=== PATIENT | female | born 1990 | race African-American/Black ===

== ENCOUNTER 2016-11-26 23:37 | Emergency (ER) | payer OTHER ==
[~2016-11-26 23:37] MED LIST: Sodium Chloride 0.9% 1,000 ML BAG ONE
[2016-11-27] MEDS ORDERED: Ondansetron HCl/PF 4 MG/2 ML Vial ONE (00:23)
[2016-11-27] MEDS ORDERED: Ibuprofen 800 MG TAB ONE (00:23)
[2016-11-27 01:03] LABS: ALT (SGPT) 54 U/L (0-55); AST (SGOT) 41 U/L (5-34); Albumin 3.9 g/dL (3.5-5.0); Alkaline Phosphatase 74 U/L (40-150); Anion Gap 18 mmol/L (10-20); BUN (Urea Nitrogen) 4 mg/dL (7.0-18.7); Bilirubin, Total 0.7 mg/dL (0.2-1.2); Calc. Creatinine Clearance 0 mL/min (70-130); Calcium 9.1 mg/dL (7.8-10.44); Carbon Dioxide 22 mmol/L (22-29); Chloride 103 mmol/L (98-107); Estimated GFR-MDRD Greater than 90; Globulin 3.5 g/dL (2.4-3.5); Glucose 117 mg/dL (70-105); Potassium 3.1 mmol/L (3.5-5.1); Protein, Total 7.4 g/dL (6.0-8.3); Sodium 140 mmol/L (136-145)
[2016-11-27 01:16] LABS: Blood, Urine Large (Negative); Clarity Slightly Cloudy (Clear); Glucose, Urine (Dipstick) Negative (Negative); Leukocyte Trace (Negative); Nitrite Negative (Negative); Protein, Urine (Dipstick) 100 mg/dL (Neg-Trace); Specific Gravity, Urine 1.025 (1.005-1.030); pH, Urine 6.5 (5.0-9.0)
[2016-11-27 01:21] LABS: #Basophils 0.1 thou/uL (0.0-0.2); #Lymphocytes 1.7 thou/uL (1.20-3.40); #Neutrophils 6.7 thou/uL (1.40-6.50); %Basophils 1.1 % (0.0-1.0); %Eosinophils 0.3 % (0.0-10.0); %Lymphocytes 18.1 % (21.0-51.0); %Monocytes 10.1 % (0.0-10.0); %Neutrophils 70.5 % (42.0-75.0); Hemoglobin 12.1 g/dL (12.0-16.0); Mean Corpuscular Hemoglobin 29.8 pg (27.0-31.0); Mean Corpuscular Volume 87.7 fl (81.0-99.0); Platelet Count 318 thou/uL (130-400); Red Blood Cell (RBC) Count 4.06 mill/uL (4.20-5.40); White Blood Cell (WBC) Count 9.5 thou/uL (4.8-10.8)
[2016-11-27 01:22] LABS: Bacteria/HPF 4+ HPF (None Seen); Bilirubin Small (Negative); Icto Negative (Negative); RBC/HPF GREATER THAN 50-TNTC HPF (0-3); Renal Epithelial 0-3 HPF (0-3); Transitional Epithelial 0-3 HPF (0-3); WBC/HPF 21-50 HPF (0-3); Yeast-All Forms 2+ HPF (None Seen)
[2016-11-27] MEDS ORDERED: cefTRIAXone\\ROCEPHIN 1 GM VIAL ONE (01:30)
[2016-11-27] MEDS ORDERED: Erythromycin Base 0.5% Ophth Oint 3.5 gm Tube ONE (01:30)
[2016-11-27] MEDS ORDERED: Potassium Chloride 20 MEQ TAB ONE (01:30)
--- NOTE | 2016-11-27 01:55 | ERRECORD ---
[facility] EMERGENCY RECORD HPI FEVER (SunNov 27, 2016 00:10 LHOD) CHIEF COMPLAINT: Patient presents for evaluation of fever, Measured maximum temperature 101 to 101.9 degrees. HISTORIAN: History provided by patient. TIME COURSE: SUNDAY PT REPORTS SHE WASN'T FEELING WELL WITH SORE THROAT, EYE IRRITATION AND DECREASED APPETITIE. DENIES ANYONE ELSE AT HOME ILL. DENIES RECENT TRAVEL. SEEN HERE SUNDAY AND PRESCRIBED AMOXIL FOR SORE THROAT AND TOBRAMYCIN EYE DROPS FOR RIGHT EYE CONJUNCTIVITIS. ROS (SunNov 27, 2016 00:14 LHOD) CONSTITUTIONAL: Historian reports fever. EYES: Historian reports eye redness. ENT: Historian reports sore throat. CARDIOVASCULAR: Historian denies chest pain. RESPIRATORY: Historian denies cough, denies shortness of breath. DENIES SIGNIFICANT COUGH. GI: Historian denies abdominal pain, reports diarrhea, reports nausea, denies vomiting. GENITOURINARY FEMALE: Historian denies dysuria. MUSCULOSKELETAL: Historian denies back pain, denies neck pain. SKIN: Historian denies rash. NEUROLOGIC: Historian denies headache. HEMO/LYMPHATIC: Historian denies easy bruising. NOTES: All systems reviewed, negative except as described above. PAST MEDICAL HISTORY MEDICAL HISTORY: No past medical history,. (SunNov 27, 2016 00:01 LPOL) FEMALE SURGICAL HISTORY: Surgical history of tubal ligation, , Surgical history of appendectomy, Surgical history of cholecystectomy. (SunNov 27, 2016 00:01 LPOL) PSYCHIATRIC HISTORY: Notes: VERIFIED 11-24-15, Psychiatric history includes, depression, no previous inpatient psychiatric admissions. (SunNov 27, 2016 00:01 LPOL) SOCIAL HISTORY: Social History includes , Patient denies alcohol use, Patient denies drug use, Patient has no smoking history. (SunNov 27, 2016 00:01 LPOL) NOTES: Nursing records reviewed. (SunNov 27, 2016 00:18 LHOD) KNOWN ALLERGIES No Known Drug Allergies CURRENT MEDICATIONS (SunNov 27, 2016 00:04 LPOL) tobramycin: DROPS : Strength - 0.3 % : OPHTHALMIC Patient Dose: 1-2 Drps OPHTHALMIC 3 times a day.Entered brand: tobramycin Eye Drops. Phenergan DM: SYRUP : ORAL &a-1R&a+25V*p+0X*[id number]*c202B*c15G*c2P*p-0X&a-25V&a+1R Name: Lashon Schultz : 1990 F26 MedRec: [id number] AcctNum: [id number] Prepared: SunNov 27, 2016 02:59 by Interface Page 1 of 3 pMD [facility] EMERGENCY RECORD Patient Dose: 1-2 teaspoon Oral every 4 hours prn. amoxicillin: CAPSULE : Strength - 500 mg : ORAL Patient Dose: Oral 3 times a day. VITAL SIGNS VITAL SIGNS: BP: 117/61, Pulse: 113, Resp: 20, Temp: 101.5 (Oral), O2 sat: 98 on Room Air, Time: 11/26/2016 23:58. (23:58 LPOL) BP: 116/54, Pulse: 89, Resp: 20, Temp: 99.4 (Oral), O2 sat: 99 on Room Air, Time: 11/27/2016 01:23. (SunNov 27, 2016 01:23 LPOL) PHYSICAL EXAM (SunNov 27, 2016 00:15 LHOD) CONSTITUTIONAL: Vital Signs Reviewed, Patient febrile, temperature of 101.5, Pulse, tachycardic, Blood pressure normal, Respiratory rate normal, Patient alert and oriented to person, place and time, VERY TIRED APPEARING WITH MARKED RIGHT EYE CONJUNCTIVAL ERYTHEMA AND SMALL AMOUNT YELLOW D/C. EYES: Pupils equally round and reactive to light, Extraocular muscles intact, Conjunctiva, injected bilaterally, edematous on the right, RIGHT EYE MARKED CONJUNCTIVAL ERYTHEMA WITH MILD EDEMA OF EYELIDS, Eye exam included findings of anterior chamber clear. ENT: Ear exam normal, Pharynx, injected bilaterally. NECK: Neck exam included findings of normal range of motion, Trachea midline. RESPIRATORY CHEST: Respiratory exam included findings of no respiratory distress, Breath sounds clear. CARDIOVASCULAR: Cardiovascular exam included findings of heart rate regular rate and rhythm, Heart sounds normal. ABDOMEN FEMALE: Abdominal exam included findings of abdomen nontender. BACK: Back exam normal. UPPER EXTREMITY: Joint exam normal. LOWER EXTREMITY: Joint exam normal. NEURO: Neuro exam findings include patient oriented to person, place and time, Speech normal. SKIN: no rash. MEDICATION ADMINISTRATION SUMMARY Drug Name: potassium chloride oral, Dose Ordered: 20 mEq, Route: Oral, Status: Given, Time: 01:36 11/27/2016, Drug Name: Rocephin intravenous, Dose Ordered: 1 g, Route: IV Push, Status: Given, Time: 01:35 11/27/2016, Drug Name: erythromycin ophthalmic, Dose Ordered: 1 units, Route: Eye Right, Status: Given, Time: 01:35 11/27/2016, Drug Name: *Normal Saline, Dose Ordered: 500 mL, Route: IV Fluid Infusion, Status: Given, Time: 01:34 11/27/2016, &a-1R&a+25V*p+0X*[id number]*c202B*c15G*c2P*p-0X&a-25V&a+1R Name: Lashon Schlutz : 1990 F26 MedRec: [id number] AcctNum: [id number] Prepared: SunNov 27, 2016 02:59 by Interface Page 2 of 3 pMD [facility] EMERGENCY RECORD Drug Name: Zofran intravenous, Dose Ordered: 8 mg, Route: IV Push, Status: Given, Time: 00:37 11/27/2016, Drug Name: Normal Saline, Dose Ordered: 500 mL/hr, Route: IV Fluid Infusion, Status: Given, Time: 00:37 11/27/2016, Drug Name: ibuprofen, Dose Ordered: 800 mg, Route: Oral, Status: Given, Time: 00:37 11/27/2016, *Additional information available in notes, Detailed record available in Medication Service section. DOCTOR NOTES (SunNov 27, 2016 01:11 LHOD) TEXT: 0111--AWAITING LAB. 0139--ADVISED HER ILLNESS IS PRIMARILY VIRAL. HER DIARRHEA MAY BE FROM THE VIRUS, BUT AMOXIL MAY HAVE WORSENED. SHE MAY NOT REQUIRE ANY ANTIBIOTIC, BUT I AM PLACING HER ON BACTRIM FOR POSSIBLE UTI. DISPENSED ERYTHROMYCIN OPHTHALMIC OINTMENT IF THE TOBRAMYCIN IS CAUSING ANY IRRITATION, ALTHOUGH PROBABLE CONTINUED VIRAL CONJUNTIVITIS SYMPTOMS. NO EVIDENCE OF SEPSIS, MENINGITIS OR PNEUMONIA. NO EVIDENCE OF CORNEAL ULCER OR ABRASION. PROBLEM LIST No recorded problems DIAGNOSIS (SunNov 27, 2016 01:32 LHOD) FINAL: PRIMARY: BILATERAL CONJUNCTIVITIS---VIRAL, ADDITIONAL: Hypokalemia, PHARYNGITIS--PROBABLE VIRAL, UTI. PRESCRIPTION (SunNov 27, 2016 01:34 LHOD) Bactrim DS: TABLET : 800 mg-160 mg : ORAL : Quantity: 1 Unit: tab(s) Route: ORAL Schedule: 2 times a day Dispense: 14 May substitute. Refills: No Refills . NOTES: No Refills. K-Dur: TABLET, EXT RELEASE, PARTICLES/CRYSTALS : 20 mEq : ORAL : Quantity: 1 Unit: tab(s) Route: ORAL Schedule: once a day (in the morning) Dispense: 4 May substitute. Refills: No Refills . NOTES: ^s=No Refills No Refills. Zofran ODT: TABLET, RAPID DISSOLVE : 8 mg : ORAL : Quantity: 1 Unit: tab(s) Route: ORAL Schedule: every 6 hours PRN Dispense: 3 May substitute. Refills: 1 . NOTES: ^s=^s=No Refills No Refills No Refills. DISPOSITION PATIENT: Disposition Type: Discharge, Disposition: *Discharge Home, Condition: Good. (SunNov 27, 2016 01:32 LHOD) Patient left the department. (SunNov 27, 2016 01:50 LPOL) [place]lor: LHOD=MD Augie, Janki LPOL=WESTLEY Allison, Ynes &a-1R&a+25V*p+0X*[id number]*c202B*c15G*c2P*p-0X&a-25V&a+1R Name: Lashon Schultz : 1990 F26 MedRec: [id number] AcctNum: [id number] Prepared: SunNov 27, 2016 02:59 by Interface Page 3 of 3 pMD MTDD
--- NOTE | 2016-11-27 02:02 | PICIS ---
[facility] EMERGENCY RECORD TRIAGE (23:59 LPOL) TRIAGE NOTES: right eye redness, decreased appetite/headache x 2 days. (23:59 LPOL) PATIENT: NAME: Lashon Schultz, AGE: 26, GENDER: female, : Sun1990, TIME OF GREET: Sun Nov 26, 2016 23:38, PREFERRED LANGUAGE: Belarusian, ETHNICITY: Not or , FALL RISK: NO, ECODE BILLING MAP: [facility], SSN: [id number], Zip Code: [address], KG WEIGHT: 40.73, PHONE: , , , PERSON ID: [id number], PCP: NO PCP. (23:59 LPOL) COMPLAINT: RIGHT EYE IRRITATION. (23:59 LPOL) ADMISSION: URGENCY: 3 Urgent, ADMISSION SOURCE: Home, TRANSPORT: Walk-in, BED: TRIAGE. (23:59 LPOL) SIRS SCORING: Heart Rate 110-139 (2), Temp range 101.2-102.0 (1), respiratory rate 12-24 (0), Mental Status altered: no (0), Total SIRS Score 3, Yes, Infection or Suspected Infection. (SunNov 27, 2016 00:01 LPOL) TRIAGE SCREENING: Patient denies suicidal ideation, Patient denies presence of domestic violence. (SunNov 27, 2016 00:01 LPOL) LMP: Last menstrual period: 11/24/2016. (SunNov 27, 2016 00:01 LPOL) TREATMENTS IN PROGRESS: Treatments given Prehospital: tobramycin,amoxicillin, phenergan dm. (SunNov 27, 2016 00:01 LPOL) PROVIDERS: TRIAGE NURSE: Ynes Allison RN. (23:59 LPOL) VITAL SIGNS: BP 117/61, Pulse 113, Resp 20, Temp 101.5, (Oral), O2 Sat 98, on Room Air, Time 11/26/2016 23:58. (23:58 LPOL) PREVIOUS VISIT ALLERGIES: No Known Drug Allergies. (23:59 LPOL) No Known Drug Allergies. (SunNov 27, 2016 00:01 LPOL) KNOWN ALLERGIES No Known Drug Allergies CURRENT MEDICATIONS (SunNov 27, 2016 00:04 LPOL) tobramycin: DROPS : Strength - 0.3 % : OPHTHALMIC Patient Dose: 1-2 Drps OPHTHALMIC 3 times a day.Entered brand: tobramycin Eye Drops. Phenergan DM: SYRUP : ORAL Patient Dose: 1-2 teaspoon Oral every 4 hours prn. amoxicillin: CAPSULE : Strength - 500 mg : ORAL Patient Dose: Oral 3 times a day. VITAL SIGNS VITAL SIGNS: BP: 117/61, Pulse: 113, Resp: 20, Temp: 101.5 (Oral), O2 sat: 98 on Room Air, Time: 11/26/2016 23:58. (23:58 LPOL) BP: 116/54, Pulse: 89, Resp: 20, Temp: 99.4 (Oral), O2 sat: 99 on Room Air, Time: 11/27/2016 01:23. (SunNov 27, 2016 01:23 LPOL) &a-1R&a+25V*p+0X*i9717N*c202B*c15G*c2P*p-0X&a-25V&a+1R Name: Lashon Schultz : 1990 F26 MedRec: [id number] AcctNum: [id number] Prepared: SunNov 27, 2016 03:04 by Interface Page 1 of 12 pMD [facility] EMERGENCY RECORD NURSING ASSESSMENT: HEAD-TO-TOE (SunNov 27, 2016 00:02 LPOL) CONSTITUTIONAL: Patient arrives ambulatory, Gait steady, History obtained from patient, Patient appears, uncomfortable, Patient cooperative, Patient alert, Oriented to person, place and time, Skin warm, Skin dry, Skin normal in color, Mucous membranes pink, Mucous membranes moist, Patient is well-groomed. PAIN: head. NEURO: GCS:, Eye opening: (4) - Spontaneous, Verbal: (5) - Oriented/conversive, Motor: (6) - Obeys commands/Spontaneous, GCS Total: 15. EYES: Sclera, redness. ENT: Associated with headache. ABDOMEN: Abdomen assessment findings include abdomen symmetrical, Abdomen soft, Associated with diarrhea, Associated with appetite change, decrease. SAFETY: Cart/Stretcher in lowest position, Family at bedside, Hospital ID band on. NURSING PROCEDURE: DISCHARGE NOTE (SunNov 27, 2016 01:48 LPOL) DISCHARGE: Patient discharged to home, ambulating without assistance, friend driving, accompanied by //partner, Summary of Care printed/ provided, Patient requested and was provided an electronic copy of Discharge Instructions, Transition record given to patient, Discharge instructions given to patient, Simple or moderate discharge teaching performed, by cari, Prescriptions given and instructions on side effects given, Medication reconciliation form given, Above person(s) verbalized understanding of discharge instructions and follow-up care, Patient treated and evaluated by physician. BELONGINGS: Belongings and valuables with patient upon arrival to the Emergency Department include:, Belongings remain with patient, Valuables remain with patient. NURSING PROCEDURE: IV IV SITE 1: IV established, to the right antecubital, using a 20 gauge catheter, in one attempt, Labs drawn at time of placement, labeled in the presence of the patient and sent to lab, Blood cultures drawn at time of placement, labeled in the presence of the patient and sent to lab. (SunNov 27, 2016 00:21 LPOL) FOLLOW-UP SITE 1: IV discontinued, due to patient being discharged, catheter intact. (SunNov 27, 2016 01:45 LPOL) ORDER DETAILS Order Name: CBC with Differential, Status: Active, Time: 00:08 11/27/2016, User: JOVANNA, - Ordered for: MD Ghosh Lefayne, - Entered by: MD Ghosh Lefayne - SunNov 27, 2016 00:08, - Quantity: 1, Order Name: Comprehensive Metabolic Panel, Status: Active, Time: &a-1R&a+25V*p+0X*w8964C*c202B*c15G*c2P*p-0X&a-25V&a+1R Name: Lashon Schultz : 1990 F26 MedRec: [id number] AcctNum: [id number] Prepared: SunNov 27, 2016 03:04 by Interface Page 2 of 12 D [facility] EMERGENCY RECORD 00:08 11/27/2016, User: JOVANNA, - Ordered for: MD Ghosh Lefayne, - Entered by: MD Ghosh Lefayne - SunNov 27, 2016 00:08, - Quantity: 1, Order Name: Culture, Blood, Status: Active, Time: 00:09 11/27/2016, User: JOVANNA, - Ordered for: MD Ghosh Lefayne, - Entered by: MD Ghosh Lefayne - Mon Nov 27, 2016 00:09, - Quantity: 1, Order Name: Culture, Urine, Status: Active, Time: 01:24 11/27/2016, User: JOVANNA, - Ordered for: MD Ghosh Lefayne, - Entered by: MD Ghosh Lefayne - Mon Nov 27, 2016 01:24, - Quantity: 1, Order Name: Influenza A&B Ag Screen, Status: Active, Time: 00:07 11/27/2016, User: JOVANNA, - Ordered for: MD Ghosh Lefayne, - Entered by: MD Ghosh Lefayne - Mon Nov 27, 2016 00:07, - Quantity: 1, Order Name: SALINE LOCK, Status: Done, Time: 00:22 11/27/2016, User: LPOL, - Ordered for: MD Ghosh Lefayne, - Entered by: MD Ghosh Lefayne - Mon Nov 27, 2016 00:08, - Quantity: 1, Order Name: Strep Group A Screen, Status: Active, Time: 00:07 11/27/2016, User: JOVANNA, - Ordered for: MD Ghosh Lefayne, - Entered by: MD Ghosh Lefayne - Mon Nov 27, 2016 00:07, - Quantity: 1, Order Name: Urinalysis with Microscopic, Status: Active, Time: 00:09 11/27/2016, User: JOVANNA, - Ordered for: MD Ghosh Lefayne, - Entered by: MD Ghosh Lefayne - Mon Nov 27, 2016 00:09, - Quantity: 1. MEDICATION ADMINISTRATION SUMMARY Drug Name: potassium chloride oral, Dose Ordered: 20 mEq, Route: Oral, Status: Given, Time: 01:36 11/27/2016, Drug Name: Rocephin intravenous, Dose Ordered: 1 g, Route: IV Push, Status: Given, Time: :11/27/2016, Drug Name: erythromycin ophthalmic, Dose Ordered: 1 units, Route: Eye Right, Status: Given, Time: :11/27/2016, Drug Name: *Normal Saline, Dose Ordered: 500 mL, Route: IV Fluid Infusion, Status: Given, Time: 01:34 11/27/2016, Drug Name: Zofran intravenous, Dose Ordered: 8 mg, Route: IV Push, Status: Given, Time: 00:37 11/27/2016, Drug Name: Normal Saline, Dose Ordered: 500 mL/hr, Route: IV Fluid Infusion, Status: Given, Time: 00:37 11/27/2016, Drug Name: ibuprofen, Dose Ordered: 800 mg, Route: Oral, Status: &a-1R&a+25V*p+0X*q1392T*c202B*c15G*c2P*p-0X&a-25V&a+1R Name: Lashon Schultz : 1990 F26 MedRec: [id number] AcctNum: [id number] Prepared: SunNov 27, 2016 03:04 by Interface Page 3 of 12 pMD [facility] EMERGENCY RECORD Given, Time: 00:37 11/27/2016, *Additional information available in notes, Detailed record available in Medication Service section. MEDICATION SERVICE erythromycin ophthalmic: Order: erythromycin ophthalmic (erythromycin base) - Dose: 1 units : Eye Right Schedule: Now Repeat: EVERY 4 HOURS Ordered by: Janki Ghosh MD Entered by: Janki Ghosh MD SunNov 27, 2016 01:30 Documented as given by: Ynes Allison RN SunNov 27, 2016 01:35 Patient, Medication, Dose, Route and Time verified prior to administration. Site: Medication administered on the right side, Correct patient, time, route, dose and medication confirmed prior to administration, Patient advised of actions and side-effects prior to administration, Allergies confirmed and medications reviewed prior to administration. : Follow Up : No signs or symptoms of allergic reaction noted. (SunNov 27, 2016 01:45 LPOL) ibuprofen: Order: ibuprofen - Dose: 800 mg : Oral Ordered by: Janki Ghosh MD Entered by: Janki Ghosh MD SunNov 27, 2016 00:09 , Acknowledged by: Ynes Allison RN SunNov 27, 2016 00:22 Documented as given by: Ynes Allison RN SunNov 27, 2016 00:37 Patient, Medication, Dose, Route and Time verified prior to administration. Amount given: 800 mg, Site: Medication administered P.O., Patient appears Awake and alert- acceptable, Correct patient, time, route, dose and medication confirmed prior to administration, Patient advised of actions and side-effects prior to administration, Allergies confirmed and medications reviewed prior to administration. : Follow Up : Response assessment performed, No signs or symptoms of allergic reaction noted, Decreased temperature. (SunNov 27, 2016 01:27 LPOL) Normal Saline: Order: Normal Saline (0.9 % sodium chloride) - Dose: 500 mL/hr : IV Fluid Infusion Ordered by: Janki Ghosh MD Entered by: Janki Ghosh MD SunNov 27, 2016 00:08 , Acknowledged by: Ynes Allison RN SunNov 27, 2016 00:23 Documented as given by: Ynes Allison RN SunNov 27, 2016 00:37 Patient, Medication, Dose, Route and Time verified prior to administration. IV SITE #1 IV fluids established for hydration, IV SITE #1 into right antecubital, via primary tubing, Awake and alert- acceptable, Catheter placement confirmed via flush prior to administration, IV site without signs or symptoms of infiltration during medication administration, No swelling during administration, No drainage during administration, IV flushed after administration, Correct patient, time, route, dose and medication confirmed prior to administration, Patient advised of actions and side-effects prior to administration, Allergies confirmed and medications reviewed prior to administration. &a-1R&a+25V*p+0X*f8814T*c202B*c15G*c2P*p-0X&a-25V&a+1R Name: Lashon Schultz : 1990 F26 MedRec: [id number] AcctNum: [id number] Prepared: SunNov 27, 2016 03:04 by Interface Page 4 of 12 pMD [facility] EMERGENCY RECORD : Follow Up : No signs or symptoms of allergic reaction noted, _IV SITE #1:_, IV fluid infusion discontinued, on SunNov 27, 2016 01:45, Total fluid hydration time IV site 1 1 hour, 10 minutes, ., Total amount infused: 1000. (SunNov 27, 2016 01:45 LPOL) Normal Saline: Order: Normal Saline (0.9 % sodium chloride) - Dose: 500 mL : IV Fluid Infusion Notes: BOLUS FOR TOTAL 1 LITER Ordered by: Janki Ghosh MD Entered by: Janki Ghosh MD SunNov 27, 2016 01:31 Documented as given by: Ynes Allison RN SunNov 27, 2016 01:34 Patient, Medication, Dose, Route and Time verified prior to administration. IV SITE #1 IV fluids established for hydration, IV SITE #1 into right forearm, Awake and alert- acceptable, Catheter placement confirmed via flush prior to administration, IV site without signs or symptoms of infiltration during medication administration, No swelling during administration, No drainage during administration, IV flushed after administration, Correct patient, time, route, dose and medication confirmed prior to administration, Patient advised of actions and side-effects prior to administration, Allergies confirmed and medications reviewed prior to administration. : Follow Up : No signs or symptoms of allergic reaction noted, _IV SITE #1:_, IV fluid infusion discontinued, IV Discontinued with catheter intact. (SunNov 27, 2016 01:46 LPOL) potassium chloride oral: Order: potassium chloride oral (potassium chloride) - Dose: 20 mEq : Oral Ordered by: Janki Ghosh MD Entered by: Janki Ghosh MD SunNov 27, 2016 01:29 Documented as given by: Ynes Allison RN SunNov 27, 2016 01:36 Patient, Medication, Dose, Route and Time verified prior to administration. Amount given: 20 meq, Site: Medication administered P.O., Patient appears Awake and alert- acceptable, Correct patient, time, route, dose and medication confirmed prior to administration, Patient advised of actions and side-effects prior to administration, Allergies confirmed and medications reviewed prior to administration. Rocephin intravenous: Order: Rocephin intravenous (ceftriaxone sodium) - Dose: 1 g : IV Push Ordered by: Janki Ghosh MD Entered by: Janki Ghosh MD SunNov 27, 2016 01:30 Documented as given by: Ynes Allison RN SunNov 27, 2016 01:35 Patient, Medication, Dose, Route and Time verified prior to administration. Amount given: 1 gm, IV SITE #1 IVP, initial medication. : Follow Up : No signs or symptoms of allergic reaction noted, _IV SITE #1:_, _IV SITE #2:_, Medication infusion discontinued, on SunNov 27, 2016 01:43, 10 minutes, ., Total amount infused: 100. (SunNov 27, 2016 01:46 LPOL) Zofran intravenous: Order: Zofran intravenous (ondansetron HCl) - Dose: 8 mg : IV Push &a-1R&a+25V*p+0X*p4687V*c202B*c15G*c2P*p-0X&a-25V&a+1R Name: Lashon Schultz : 1990 F26 MedRec: [id number] AcctNum: [id number] Prepared: SunNov 27, 2016 03:04 by Interface Page 5 of 12 pMD [facility] EMERGENCY RECORD Ordered by: Janki Ghosh MD Entered by: Janki Ghosh MD SunNov 27, 2016 00:08 , Acknowledged by: Ynes Allison RN SunNov 27, 2016 00:23 Documented as given by: Ynes Allison RN SunNov 27, 2016 00:37 Patient, Medication, Dose, Route and Time verified prior to administration. Amount given: 8 mg, IV SITE #1 IVP, initial medication, Slowly, Awake and alert- acceptable, Catheter placement confirmed via flush prior to administration, IV site without signs or symptoms of infiltration during medication administration, No swelling during administration, No drainage during administration, IV flushed after administration, Correct patient, time, route, dose and medication confirmed prior to administration, Patient advised of actions and side-effects prior to administration, Allergies confirmed and medications reviewed prior to administration. : Follow Up : Response assessment performed, No signs or symptoms of allergic reaction noted, Decreased nausea, _IV SITE #1:_. (SunNov 27, 2016 01:27 LPOL) HPI FEVER (SunNov 27, 2016 00:10 LHOD) CHIEF COMPLAINT: Patient presents for evaluation of fever, Measured maximum temperature 101 to 101.9 degrees. HISTORIAN: History provided by patient. TIME COURSE: SUNDAY PT REPORTS SHE WASN'T FEELING WELL WITH SORE THROAT, EYE IRRITATION AND DECREASED APPETITIE. DENIES ANYONE ELSE AT HOME ILL. DENIES RECENT TRAVEL. SEEN HERE SUNDAY AND PRESCRIBED AMOXIL FOR SORE THROAT AND TOBRAMYCIN EYE DROPS FOR RIGHT EYE CONJUNCTIVITIS. ROS (SunNov 27, 2016 00:14 LHOD) CONSTITUTIONAL: Historian reports fever. EYES: Historian reports eye redness. ENT: Historian reports sore throat. CARDIOVASCULAR: Historian denies chest pain. RESPIRATORY: Historian denies cough, denies shortness of breath. DENIES SIGNIFICANT COUGH. GI: Historian denies abdominal pain, reports diarrhea, reports nausea, denies vomiting. GENITOURINARY FEMALE: Historian denies dysuria. MUSCULOSKELETAL: Historian denies back pain, denies neck pain. SKIN: Historian denies rash. NEUROLOGIC: Historian denies headache. HEMO/LYMPHATIC: Historian denies easy bruising. NOTES: All systems reviewed, negative except as described above. PAST MEDICAL HISTORY MEDICAL HISTORY: No past medical history,. (SunNov 27, 2016 00:01 LPOL) FEMALE SURGICAL HISTORY: Surgical history of tubal ligation, , Surgical history of appendectomy, Surgical history of &a-1R&a+25V*p+0X*h7679S*c202B*c15G*c2P*p-0X&a-25V&a+1R Name: Lashon Schultz : 1990 F26 MedRec: [id number] AcctNum: [id number] Prepared: SunNov 27, 2016 03:04 by Interface Page 6 of 12 pMD [facility] EMERGENCY RECORD cholecystectomy. (SunNov 27, 2016 00:01 LPOL) PSYCHIATRIC HISTORY: Notes: VERIFIED 11-24-15, Psychiatric history includes, depression, no previous inpatient psychiatric admissions. (SunNov 27, 2016 00:01 LPOL) SOCIAL HISTORY: Social History includes , Patient denies alcohol use, Patient denies drug use, Patient has no smoking history. (SunNov 27, 2016 00:01 LPOL) NOTES: Nursing records reviewed. (SunNov 27, 2016 00:18 LHOD) PHYSICAL EXAM (SunNov 27, 2016 00:15 LHOD) CONSTITUTIONAL: Vital Signs Reviewed, Patient febrile, temperature of 101.5, Pulse, tachycardic, Blood pressure normal, Respiratory rate normal, Patient alert and oriented to person, place and time, VERY TIRED APPEARING WITH MARKED RIGHT EYE CONJUNCTIVAL ERYTHEMA AND SMALL AMOUNT YELLOW D/C. EYES: Pupils equally round and reactive to light, Extraocular muscles intact, Conjunctiva, injected bilaterally, edematous on the right, RIGHT EYE MARKED CONJUNCTIVAL ERYTHEMA WITH MILD EDEMA OF EYELIDS, Eye exam included findings of anterior chamber clear. ENT: Ear exam normal, Pharynx, injected bilaterally. NECK: Neck exam included findings of normal range of motion, Trachea midline. RESPIRATORY CHEST: Respiratory exam included findings of no respiratory distress, Breath sounds clear. CARDIOVASCULAR: Cardiovascular exam included findings of heart rate regular rate and rhythm, Heart sounds normal. ABDOMEN FEMALE: Abdominal exam included findings of abdomen nontender. BACK: Back exam normal. UPPER EXTREMITY: Joint exam normal. LOWER EXTREMITY: Joint exam normal. NEURO: Neuro exam findings include patient oriented to person, place and time, Speech normal. SKIN: no rash. LAB INTERPRETATION (SunNov 27, 2016 01:09 LHOD) INTERPRETATION: I reviewed the lab results, CBC normal, Chemistry abnormal, Potassium decreased, Urinalysis abnormal, positive for leukocytes, positive for bacteria, Rapid strep negative, Influenza negative. EVENTS TRANSFER: Triage to Emergency Triage. (SunNov 26, 2016 23:59 LPOL) Emergency Triage to Main ED -03. (SunNov 27, 2016 00:00 LPOL) Removed from Emergency Main ED -03. (SunNov 27, 2016 01:50 LPOL) &a-1R&a+25V*p+0X*u1610R*c202B*c15G*c2P*p-0X&a-25V&a+1R Name: Lashon Schultz : 1990 F26 MedRec: [id number] AcctNum: [id number] Prepared: SunNov 27, 2016 03:04 by Interface Page 7 of 12 pMD [facility] EMERGENCY RECORD DOCTOR NOTES (SunNov 27, 2016 01:11 LHOD) TEXT: 0111--AWAITING LAB. 0139--ADVISED HER ILLNESS IS PRIMARILY VIRAL. HER DIARRHEA MAY BE FROM THE VIRUS, BUT AMOXIL MAY HAVE WORSENED. SHE MAY NOT REQUIRE ANY ANTIBIOTIC, BUT I AM PLACING HER ON BACTRIM FOR POSSIBLE UTI. DISPENSED ERYTHROMYCIN OPHTHALMIC OINTMENT IF THE TOBRAMYCIN IS CAUSING ANY IRRITATION, ALTHOUGH PROBABLE CONTINUED VIRAL CONJUNTIVITIS SYMPTOMS. NO EVIDENCE OF SEPSIS, MENINGITIS OR PNEUMONIA. NO EVIDENCE OF CORNEAL ULCER OR ABRASION. PROBLEM LIST No recorded problems DIAGNOSIS (SunNov 27, 2016 01:32 LHOD) FINAL: PRIMARY: BILATERAL CONJUNCTIVITIS---VIRAL, ADDITIONAL: Hypokalemia, PHARYNGITIS--PROBABLE VIRAL, UTI. DISPOSITION PATIENT: Disposition Type: Discharge, Disposition: *Discharge Home, Condition: Good. (SunNov 27, 2016 01:32 LHOD) Patient left the department. (SunNov 27, 2016 01:50 LPOL) INSTRUCTION (SunNov 27, 2016 01:36 LHOD) DISCHARGE: VIRAL CONJUNCTIVITIS. FOLLOWUP: Follow up with Primary Care Physician in 5 days. SPECIAL: USE SYNTHETIC TEARS TO KEEP EYES MOIST / CLEAR OF DRAINAGE. ERYTHROMYCIN OINTMENT EVERY 4 HOURS WHILE AWAKE FOR NEXT 5 DAYS. Tylenol or Advil for Pain OR FEVER. STOP AMOXICILLIN AND TOBRAMYCIN EYE DROPS. SOUPS / GATORADE / JUICES TO STAY HYDRATED. *RETURN IF WORSE. PRESCRIPTION (SunNov 27, 2016 01:34 LHOD) Bactrim DS: TABLET : 800 mg-160 mg : ORAL : Quantity: 1 Unit: tab(s) Route: ORAL Schedule: 2 times a day Dispense: 14 May substitute. Refills: No Refills . NOTES: No Refills. K-Dur: TABLET, EXT RELEASE, PARTICLES/CRYSTALS : 20 mEq : ORAL : Quantity: 1 Unit: tab(s) Route: ORAL Schedule: once a day (in the morning) Dispense: 4 May substitute. Refills: No Refills . NOTES: ^s=No Refills No Refills. Zofran ODT: TABLET, RAPID DISSOLVE : 8 mg : ORAL : Quantity: 1 Unit: tab(s) Route: ORAL Schedule: every 6 hours PRN Dispense: 3 May substitute. Refills: 1 . NOTES: ^s=^s=No Refills &a-1R&a+25V*p+0X*r9469L*c202B*c15G*c2P*p-0X&a-25V&a+1R Name: Linnea Schultzl : 1990 F26 MedRec: [id number] AcctNum: [id number] Prepared: SunNov 27, 2016 03:04 by Interface Page 8 of 12 pMD [facility] EMERGENCY RECORD No Refills No Refills. IMAGING DIS: Image captured from scanner. (SunNov 27, 2016 01:47 LPOL) Page 2 added. Image captured from scanner. (SunNov 27, 2016 01:47 LPOL) *SUPPLY CHARGE SHEET: Image captured from scanner. (SunNov 27, 2016 01:48 LPOL) ADMIN (SunNov 27, 2016 02:53 LHOD) DIGITAL SIGNATURE: MD Ghosh Lefayne. RESULTS LABORATORY: Comprehensive Metabolic Panel Collection DT: SunNov 27, 2016 00:41, Sodium 140 mmol/L, Range (136-145), *Potassium 3.1 - L mmol/L, Range (3.5-5.1), Chloride 103 mmol/L, Range (98-107), Carbon Dioxide 22 mmol/L, Range (22-29), Anion Gap 18 mmol/L, Range (10-20), *BUN (Urea Nitrogen) 4 - L mg/dL, Range (7.0-18.7), Creatinine 0.80 mg/dL, Range (0.6-1.1), Estimated GFR-MDRD Greater than 90 , Reference Range for Estimated GFR: Greater than 90, mL/min/1.73 m2 NOTE: The MDRD equation has not been validated for use, with the elderly (over 70 years of age), women, patients with, serious comorbid condition or persons with extremes of body size, muscle, mass, or nutritional status. , *Glucose 117 - H mg/dL, Range (70-105), Calcium 9.1 mg/dL, Range (7.8-10.44), Bilirubin, Total 0.7 mg/dL, Range (0.2-1.2), Protein, Total 7.4 g/dL, Range (6.0-8.3), NOTE: Plasma values are generally 0.3 to 0.5 g/dL higher than serum values, due to the presence of fibrinogen. , Albumin 3.9 g/dL, Range (3.5-5.0), Globulin 3.5 g/dL, Range (2.4-3.5), *Alb/Glob Ratio 1.1 - L g/dL, Range (1.2-2.2), Alkaline Phosphatase 74 U/L, Range (40-150), *AST (SGOT) 41 - H U/L, Range (5-34), ALT (SGPT) 54 U/L, Range (0-55). (SunNov 27, 2016 01:05 LHOD) MICROBIOLOGY: Influenza A&B Ag Screen: [id number] Collection DT: SunNov 27, 2016 00:41, See comment below , @ ER ROOM#: ED-03 Comment NASAL Source: Nasal swab Spec Desc: , Influenza A Antigen: NEGATIVE for the , &a-1R&a+25V*p+0X*o8224P*c202B*c15G*c2P*p-0X&a-25V&a+1R Name: Lashon Schultz : 1990 F26 MedRec: [id number] AcctNum: [id number] Prepared: SunNov 27, 2016 03:04 by Interface Page 9 of 12 pMD [facility] EMERGENCY RECORD presence of , INFLUENZA A Antigen , Influenza B Antigen: NEGATIVE for the , presence of , INFLUENZA B Antigen , The rapid Flu A&B test can distinguish between influenza A , Influenza A&B Ag Screen See comment below , and B viruses, but it does not differentiate influenza , Influenza A&B Ag Screen See comment below , subtypes. , Influenza A&B Ag Screen See comment below , Influenza A&B Ag Screen See comment below , Influenza A&B Ag Screen See comment below , Influenza A&B Ag Screen See comment below , Influenza A&B Ag Screen See comment below , with the 2008 H1N1 influenza virus have not been , Influenza A&B Ag Screen See comment below , established. For example: this test cannot distinguish , Influenza A&B Ag Screen See comment below , influenza infections caused by novel H1N1 influenza A , Influenza A&B Ag Screen See comment below , viruses versus seasonal influenza A viruses. , Influenza A&B Ag Screen See comment below , , Influenza A&B Ag Screen See comment below , A negative result does not exclude influenza virus , Influenza A&B Ag Screen See comment below , infection; therefore, if more conclusive testing is desired, , Influenza A&B Ag Screen See comment below , follow up confirmatory testing is warranted., Influenza A&B Ag Screen See comment below . (SunNov 27, 2016 01:24 LHOD) LABORATORY: Urinalysis with Microscopic Collection DT: SunNov 27, 2016 01:21, Color Yellow , Range (Yellow), Clarity Slightly Cloudy , Range (Clear), Specific [place], Urine 1.025 , Range (1.005-1.030), pH, Urine 6.5 , Range (5.0-9.0), *Leukocyte Trace - H , Range (Negative), Nitrite Negative , Range (Negative), *Protein, Urine (Dipstick) 100 - H mg/dL, Range (Neg-Trace), Glucose, Urine (Dipstick) Negative mg/dL, Range (Negative), Ketone, Urine Negative mg/dL, Range (Negative), Urobilinogen 1.0 mg/dL, Range (0.2-1.0), *Bilirubin Small - H , Range (Negative), CAUTION Urine, Bilirubin has a high incidence of false positive results due to urine color, interference. Interpret results in conjunction with other clinical, findings. , &a-1R&a+25V*p+0X*[id number]*c202B*c15G*c2P*p-0X&a-25V&a+1R Name: Lashon Schultz : 1990 F26 MedRec: [id number] AcctNum: [id number] Prepared: SunNov 27, 2016 03:04 by Interface Page 10 of 12 pMD [facility] EMERGENCY RECORD *Blood, Urine Large - H , Range (Negative), *RBC/HPF GREATER THAN 50-TNTC HPF, * - H , Range (0-3), *WBC/HPF 21-50 - H HPF, Range (0-3), *Squamous Epithelial 11-20 - H HPF, Range (0-3), Transitional Epithelial 0-3 HPF, Range (0-3), Renal Epithelial 0-3 HPF, Range (0-3), *Bacteria/HPF 4+ - H HPF, Range (None Seen), *Yeast-All Forms 2+ - H HPF, Range (None Seen). (SunNov 27, 2016 01:24 LHOD) CBC with Differential Collection DT: SunNov 27, 2016 00:41, White Blood Cell (WBC) Count 9.5 thou/uL, Range (4.8-10.8), *Red Blood Cell (RBC) Count 4.06 - L mill/uL, Range (4.20-5.40), Hemoglobin 12.1 g/dL, Range (12.0-16.0), *Hematocrit 35.6 - L %, Range (36.0-47.0), Mean Corpuscular Volume 87.7 fl, Range (81.0-99.0), Mean Corpuscular Hemoglobin 29.8 pg, Range (27.0-31.0), Mean Corpuscular HGB CONC 34.0 g/dL, Range (32.0-36.0), *RBC Distribution Width 11.0 - L %, Range (11.5-14.5), Platelet Count 318 thou/uL, Range (130-400), Mean Platelet Volume 8.0 fL, Range (7.4-10.4), %Neutrophils 70.5 %, Range (42.0-75.0), *%Lymphocytes 18.1 - L %, Range (21.0-51.0), *%Monocytes 10.1 - H %, Range (0.0-10.0), %Eosinophils 0.3 %, Range (0.0-10.0), *%Basophils 1.1 - H %, Range (0.0-1.0), *#Neutrophils 6.7 - H thou/uL, Range (1.40-6.50), #Lymphocytes 1.7 thou/uL, Range (1.20-3.40), *#Monocytes 1.0 - H thou/uL, Range (0.11-0.59), #Eosinphils 0.0 thou/uL, Range (0.0-0.7), #Basophils 0.1 thou/uL, Range (0.0-0.2). (SunNov 27, 2016 01:24 LHOD) MICROBIOLOGY: Strep Group A Screen: [id number] Collection DT: SunNov 27, 2016 00:41, See comment below , @ ER ROOM#: [id number] Comment PHARYNX Source: Throat Spec Desc: PENDING, Strep A Negative CDC recommends , confirmation by , culture on all , negative , Strep negative line 1 Group A , Streptococcus rapid , screens. Please , order , Strep negative line 2 a throat culture if , clinically , indicated. , Rapid Strep Screen:Throat Negative . (SunNov 27, 2016 01:25 LHOD) &a-1R&a+25V*p+0X*[id number]*c202B*c15G*c2P*p-0X&a-25V&a+1R Name: Lashon Schultz : 1990 F26 MedRec: [id number] AcctNum: [id number] Prepared: SunNov 27, 2016 03:04 by Interface Page 11 of 12 pMD [facility] EMERGENCY RECORD T[place]lor: LHOD=MD Augie, Janki LPOL=WESTLEY Allison, Ynes &a-1R&a+25V*p+0X*b7361R*c202B*c15G*c2P*p-0X&a-25V&a+1R Name: Lashon Schultz : 1990 F26 MedRec: [id number] AcctNum: [id number] Prepared: SunNov 27, 2016 03:04 by Interface Page 12 of 12 pMD MTDD
== END 2016-11-27 01:45 | disposition home or self-care (01) ==
LOC: MADERS 23:37
DX: B30.9 Viral conjunctivitis, unspecified (principal); E87.6 Hypokalemia; N39.0 Urinary tract infection, site not specified; J02.9 Acute pharyngitis, unspecified; F32.9 Major depressive disorder, single episode, unspecified; Z79.2 Long term (current) use of antibiotics; Z79.899 Other long term (current) drug therapy
CPT/HCPCS: 36415; 80053; 81001; 85025; 87040; 87077; 87086; 87186; 87430; 96361; 96374; 96375; J0696; J2405; J7050

== ENCOUNTER 2018-05-12 07:20 | Emergency (ER) | payer OTHER, SELFPAY ==
[2018-05-12] MEDS ORDERED: HYDROcodone/Acetaminophen 10/325 mg Tablet ONE (07:56)
[2018-05-12] MEDS ORDERED: Lorazepam 1 MG TAB ONE (07:56)
[2018-05-12] MEDS ORDERED: Naproxen 500 MG TAB ONE (07:57)
[2018-05-12] MEDS ORDERED: AMOXicillin 250 MG CAP ONE (07:57)
[2018-05-12] MEDS ORDERED: Aspirin 325 MG TAB ONE (07:57)
[2018-05-12 08:29] LABS: #Basophils 0.1 thou/uL (0.0-0.2); #Eosinphils 0.2 thou/uL (0.0-0.7); #Lymphocytes 2.3 thou/uL (1.20-3.40); #Monocytes 0.4 thou/uL (0.11-0.59); #Neutrophils 3.8 thou/uL (1.40-6.50); %Basophils 1.4 % (0.0-1.0); %Eosinophils 2.9 % (0.0-10.0); %Lymphocytes 34.5 % (21.0-51.0); %Monocytes 5.6 % (0.0-10.0); %Neutrophils 55.5 % (42.0-75.0); Hemoglobin 11.4 g/dL (12.0-16.0); Mean Corpuscular HGB CONC 33.7 g/dL (32.0-36.0); Mean Corpuscular Hemoglobin 28.6 pg (27.0-31.0); Mean Corpuscular Volume 85.1 fl (81.0-99.0); Mean Platelet Volume 7.9 fL (7.4-10.4); Platelet Count 263 thou/uL (130-400); RBC Distribution Width 12.2 % (11.5-14.5); Red Blood Cell (RBC) Count 3.98 mill/uL (4.20-5.40); White Blood Cell (WBC) Count 6.8 thou/uL (4.8-10.8)
[2018-05-12 08:36] LABS: Prothrombin Time 13.5 SEC (12.0-14.7)
[2018-05-12 08:37] LABS: PTT 27.1 SEC (22.9-36.1)
[2018-05-12 08:47] LABS: ALT (SGPT) 30 U/L (8-55); AST (SGOT) 35 U/L (5-34); Albumin 3.8 g/dL (3.5-5.0); Alkaline Phosphatase 52 U/L (40-150); Anion Gap 11 mmol/L (10-20); BUN (Urea Nitrogen) 11 mg/dL (7.0-18.7); Bilirubin, Total 0.5 mg/dL (0.2-1.2); CK (CPK) 111 U/L (29-168); Calc. Creatinine Clearance 0 mL/min (70-130); Calcium 8.9 mg/dL (7.8-10.44); Carbon Dioxide 22 mmol/L (22-29); Chloride 109 mmol/L (98-107); Estimated GFR-MDRD Greater than 90; Globulin 2.8 g/dL (2.4-3.5); Glucose 117 mg/dL (70-105); Potassium 3.7 mmol/L (3.5-5.1); Protein, Total 6.6 g/dL (6.0-8.3); Sodium 138 mmol/L (136-145)
[2018-05-12 08:49] LABS: CKMB 0.9 ng/mL (0-6.6); Troponin I Less than 0.010 ng/mL (< 0.028)
--- NOTE | 2018-05-12 09:16 | RAD ---
PORTABLE CHEST: Date: 05/12/18 HISTORY: Chest pain. COMPARISON: 01/25/14. FINDINGS: Heart size and mediastinum are within normal limits. Lungs are clear of infiltrates. No significant b sylvester findings. IMPRESSION: No active intrathoracic disease. POS: [facility]
== END 2018-05-12 09:10 | disposition home or self-care (01) ==
LOC: MADERS 07:20
DX: R07.1 Chest pain on breathing (principal); K08.89 Other specified disorders of teeth and supporting structures
CPT/HCPCS: 36415; 71045; 80053; 82553; 83880; 84484; 85025; 85610; 85730; 93005

== ENCOUNTER 2018-11-27 09:59 | Outpatient (CLI) | payer OTHER ==
--- NOTE | 2018-11-27 12:09 | ULT ---
PELVIC ULTRASOUND: Date: 11-27-18 History: Pelvic pain. FINDINGS: Multiple transabdominal and endovaginal sonographic images of the pelvis are obtained. The uterus demonstrates a normal sonographic appearance and measures 8.3 cm x 4.5 cm x 3.6 cm. The en dometrial stripe measures 0.5 cm in thickness which is within normal limits. No fluid or fluid collec tion is seen in the endometrial canal. A fee nabothian cysts are seen in the cervix. The right ovary demonstrates normal sonographic appearance with peripheral follicles seen and measure 3.4 cm x 1.1 cm x 1.3 cm. The left ovary demonstrates multiple peripheral follicles and measures 2.6 cm x 2.9 cm x 2.5 cm. Ther e is an irregular anechoic structure seen centrally within the left ovary measuring approximately 1.4 cm and likely represents an involuting follicle or cyst. Doppler evaluation of each ovary with spectral analysis and color flow evaluation demonstrates arteri al and venous flow in each ovary. No free fluid is seen in the cul-de-sac. IMPRESSION: Normal appearing uterus and right ovary. There is an irregular anechoic structure seen in the left ov mason probably related to an involuting cyst or follicle. POS: [facility]
== END 2018-11-27 10:00 | disposition home or self-care (01) ==
LOC: MADULT 09:59
PROVIDERS: ATTEND Family Medicine
DX: R10.2 Pelvic and perineal pain (principal)
CPT/HCPCS: 76856